=== PATIENT | male | born 1955 | race Hispanic/Latino ===

== ENCOUNTER 2017-05-12 18:45 | Emergency (ER) | payer BC ==
[2017-05-12 19:28] LABS: Basophils % (Auto) 0.8 % (0.0-1.8); Eosinophils % (Auto) 0.7 % (0.0-4.3); Hematocrit 35.6 % (35.5-45.6); Hemoglobin 11.9 gm/dl (11.8-15.2); Mean Corpuscular HGB Conc 33 % (32-34); Mean Corpuscular Hemoglobin 30 pg (28-32); Mean Corpuscular Volume 89 fl (84-94); Platelet Count 135 K/mm3 (140-440); Red Blood Count 4.02 M/mm3 (3.65-5.03); Red Cell Distribution Width 14.8 % (13.2-15.2); White Blood Count 7.3 K/mm3 (4.5-11.0)
[2017-05-12 19:48] LABS: INR 4.67 (0.87-1.13)
[2017-05-12 19:49] LABS: Partial Thromboplastin Time 54.4 Sec. (24.2-36.6)
[2017-05-12 19:54] LABS: Anion Gap 19 mmol/L; BUN/Creatinine Ratio 5.71; Blood Urea Nitrogen 8 mg/dL (9-20); Carbon Dioxide 26 mmol/L (22-30); Chloride 98.3 mmol/L (98-107); Glucose 94 mg/dL (75-100); Potassium 4.7 mmol/L (3.6-5.0); Sodium 139 mmol/L (137-145)
[2017-05-12 22:41] VITALS: BP 124/56
[2017-05-12] MEDS ORDERED: LASIX IV ONE (23:30)
[2017-05-12] MEDS ORDERED: ZOFRAN IV ONE (23:30)
[2017-05-12] MEDS ORDERED: MORPHINE IV ONE (23:30)
--- NOTE | 2017-05-12 23:45 | Emergency Department Report ---
HPI - General Chief Complaint: Extremity Injury, Lower Time Seen by Provider: 05/12/17 22:54 - HPI HPI: Room 3 The patient is a 61-year-old male presenting with a chief complaint of bilateral lower extremity edema and left leg pain. Patient states yesterday he developed swelling in both lower extremities. The patient states yesterday after normal interval mild aching pain behind his left calf. Patient states the pain is worsened the point where is unable to bear weight. Patient denies chest pain, shortness of breath or fever. Patient denies trauma to any type. Patient does have a history of CHF and states that he is not on a diuretic. Patient gets his pain a score of 10/10 Location: Bilateral lower extremities Duration: Constant since yesterday Quality: Pain Severity: 10/10 Modifying factors: [see above] Context: [see above] Mode of transportation: [not driving] ED Past Medical Hx - Past Medical History Previous Medical History?: Yes Hx Hypertension: Yes Hx Heart Attack/AMI: Yes Hx Congestive Heart Failure: Yes Hx Diabetes: Yes Hx Pulmonary Embolism: Yes (2008 on Coumadin) Hx Arthritis: Yes (rheumatoid arthritis) Additional medical history: Psoriasis - Surgical History Past Surgical History?: Yes Hx Open Heart Surgery: Yes (CABG 2004) - Family History Family history: no significant - Social History Smoking Status: Current Every Day Smoker (1/2 pack per day) Substance Use Type: None - Medications Home Medications: Home Medications Medication Instructions Recorded Confirmed Last Taken Type AtorvaSTATin [Lipitor] 40 mg PO QHS 05/12/17 05/12/17 05/11/17 History Carvedilol [Coreg] 12.5 mg PO BID 05/12/17 05/12/17 05/12/17 History Clopidogrel Bisulfate [Plavix] 75 mg PO DAILY 05/12/17 05/12/17 05/12/17 History Cyanocobalamin (Vitamin B-12) 1,000 mcg PO DAILY 05/12/17 05/12/17 05/12/17 History [Vitamin B12] Escitalopram [Lexapro] 10 mg PO DAILY 05/12/17 05/12/17 05/12/17 History Folic Acid [Folvite] 1 mg PO QDAY 05/12/17 05/12/17 05/12/17 History Levothyroxine [Synthroid] 100 mcg PO QAM 06/05/12/17 05/12/17 History Lisinopril [Zestril] 20 mg PO QDAY 05/12/17 05/12/17 05/12/17 History Omeprazole 40 mg PO DAILY 05/12/17 05/12/17 05/12/17 History Potassium Chloride [K-Dur] 20 meq PO BID 05/12/17 05/12/17 05/12/17 History Warfarin [Coumadin] 7.5 mg PO QDAY 05/12/17 05/12/17 05/12/17 History metFORMIN [Glucophage] 500 mg PO BID 05/12/17 05/12/17 05/12/17 History Furosemide [Lasix] 20 mg PO QDAY #7 tablet 05/13/17 Unknown Rx HYDROcodone/APAP 5-325 [[place] 1 - 2 each PO Q6HR PRN #14 tablet 05/13/17 Unknown Rx 5/325] ED Review of Systems ROS: Stated complaint: SWOLLEN LEGS/PAIN Other details as noted in HPI Comment: All other systems reviewed and negative Constitutional: denies: chills, fever Eyes: denies: eye pain, eye discharge, vision change ENT: denies: ear pain, throat pain Respiratory: denies: cough, shortness of breath, wheezing Cardiovascular: denies: chest pain, palpitations Endocrine: no symptoms reported Gastrointestinal: denies: abdominal pain, nausea, diarrhea Genitourinary: denies: urgency, dysuria Musculoskeletal: myalgia. denies: back pain, joint swelling, arthralgia Skin: denies: rash, lesions Neurological: denies: headache, weakness, paresthesias Psychiatric: denies: anxiety, depression Hematological/Lymphatic: denies: easy bleeding, easy bruising Physical Exam - Physical Exam Vital Signs: Vital Signs 05/12/17 05/12/17 05/12/17 18:54 21:53 22:00 Temperature 98.5 F Pulse Rate 83 74 Respiratory 18 15 22 Rate Blood Pressure 133/70 124/56 O2 Sat by Pulse 97 99 100 Oximetry 05/12/17 05/12/17 05/12/17 22:10 22:20 22:30 Temperature Pulse Rate 71 79 73 Respiratory 10 L 20 22 Rate Blood Pressure 124/56 124/56 124/56 O2 Sat by Pulse 100 97 100 Oximetry Physical Exam: GENERAL: The patient is well-developed well-nourished male lying on stretcher not appearing to be in acute distress. [] HEENT: Normocephalic. Atraumatic. Extraocular motions are intact. Patient has moist mucous membranes. NECK: Supple. Trachea midline CHEST/LUNGS: Clear to auscultation. There is no respiratory distress noted. HEART/CARDIOVASCULAR: Regular. There is no tachycardia. There is no gallop rub or murmur. Dopplerable DP left foot ABDOMEN: Abdomen is soft, nontender. Patient has normal bowel sounds. There is no abdominal distention. SKIN: Large psoriatic lesion to the anterolateral right lower extremity, this is chronic). There is 2+ bilateral lower extremity pitting edema. There is no diaphoresis. NEURO: The patient is awake, alert, and oriented. The patient is cooperative. The patient has normal speech MUSCULOSKELETAL: There is tenderness to palpation of the left calf. ED Course Vital Signs 05/12/17 05/12/17 05/12/17 18:54 21:53 22:00 Temperature 98.5 F Pulse Rate 83 74 Respiratory 18 15 22 Rate Blood Pressure 133/70 124/56 O2 Sat by Pulse 97 99 100 Oximetry 05/12/17 05/12/17 05/12/17 22:10 22:20 22:30 Temperature Pulse Rate 71 79 73 Respiratory 10 L 20 22 Rate Blood Pressure 124/56 124/56 124/56 O2 Sat by Pulse 100 97 100 Oximetry - Reevaluation(s) Reevaluation #1: 05/13/17 00:37 Patient improved. States pain is decreased to 3/10 ED Medical Decision Making - Lab Data Result diagrams: 05/12/17 19:03 05/12/17 19:03 Laboratory Tests 05/12/17 05/12/17 05/12/17 19:03 19:03 19:03 WBC 7.3 RBC 4.02 Hgb 11.9 Hct 35.6 MCV 89 MCH 30 MCHC 33 RDW 14.8 Plt Count 135 L Lymph % (Auto) 17.4 [place] % (Auto) 9.1 H Eos % (Auto) 0.7 Baso % (Auto) 0.8 Lymph # 1.3 [place] # 0.7 Eos # 0.0 Baso # 0.1 Seg Neutrophils % 72.0 H Seg Neutrophils # 5.3 PT 44.5 H INR 4.67 H APTT 54.4 H Sodium 139 Potassium 4.7 Chloride 98.3 Carbon Dioxide 26 Anion Gap 19 BUN 8 L Creatinine 1.4 Estimated GFR 52 BUN/Creatinine Ratio 5.71 Glucose 94 Calcium 8.0 L Total Bilirubin Direct Bilirubin Indirect Bilirubin AST ALT Alkaline Phosphatase Troponin T < 0.010 NT-Pro-B Natriuret Pep Total Protein Albumin Albumin/Globulin Ratio 05/12/17 05/12/17 05/12/17 19:03 19:09 22:09 WBC RBC Hgb Hct MCV MCH MCHC RDW Plt Count Lymph % (Auto) [place] % (Auto) Eos % (Auto) Baso % (Auto) Lymph # [place] # Eos # Baso # Seg Neutrophils % Seg Neutrophils # PT INR APTT Sodium Potassium Chloride Carbon Dioxide Anion Gap BUN Creatinine Estimated GFR BUN/Creatinine Ratio Glucose Calcium Total Bilirubin 0.90 Direct Bilirubin 0.4 H Indirect Bilirubin 0.5 AST 30 ALT 16 Alkaline Phosphatase 74 Troponin T < 0.010 NT-Pro-B Natriuret Pep 824.1 Total Protein 7.1 Albumin 3.4 L Albumin/Globulin Ratio 0.9 - EKG Data -: EKG Interpreted by Me EKG shows normal: sinus rhythm Rate: normal - EKG Data When compared to previous EKG there are: previous EKG unavailable Interpretation: other (no ischemic changes seen) - Radiology Data Radiology results: image reviewed (left tib-fib x-ray) interpreted by me: Left tib-fib x-ray-no acute fracture - Differential Diagnosis CHF, peripheral edema, DVT, muscle spasm, occult fracture Critical care attestation.: If time is entered above; I have spent that time in minutes in the direct care of this critically ill patient, excluding procedure time. ED Disposition Clinical Impression: Pain of left calf, Bilateral lower extremity edema Disposition: - TO HOME OR SELFCARE Is pt being admited?: No Does the pt Need Aspirin: No Condition: Stable Instructions: Deep Venous Thrombosis (ED), Leg Edema (ED) Additional Instructions: You should not take no Coumadin for the next 2 days (your INR today was 4.67). You should return to the hospital this morning to have an ultrasound performed of the left lower extremity to evaluate for DVTs (blood clots). Return to the emergency department immediately should you develop worsening symptoms, fever, inability to tolerate food or liquid or any other concerns. Prescriptions: Furosemide [Lasix] 20 mg PO QDAY #7 tablet HYDROcodone/APAP 5-325 [[place] 5/325] 1 - 2 each PO Q6HR PRN #14 tablet PRN Reason: Pain Referrals: PRIMARY CARE,MD [Primary Care Provider] - 3-5 Days Time of Disposition: 00:28
[2017-05-12 23:46] LABS: Albumin 3.4 g/dL (3.9-5); Albumin/Globulin Ratio 0.9 %; Bilirubin,Direct 0.4 mg/dL (0-0.2); Bilirubin,Indirect 0.5 mg/dL; Bilirubin,Total 0.9 mg/dL (0.1-1.2); Total Protein 7.1 g/dL (6.3-8.2)
[2017-05-13] MEDS ORDERED: CITRACAL D 315MG-250 UNITS PO ONE (00:23)
--- NOTE | 2017-05-13 08:17 | XRay Report ---
LEFT TIBIA AND FIBULA TWO VIEWS: 05/12/17 18:45:00 CLINICAL: Pain. No trauma. FINDINGS: No fracture or dislocation. Mild narrowing of the medial joint space. The patella is segmented on the lateral view suggesting an old fracture. Vascular calcifications. Surgical clips in the distal soft tissues. No soft tissue air or foreign body. IMPRESSION: Peripheral vascular disease and mild osteoarthritis of the knee.
== END 2017-05-13 01:44 | disposition home or self-care (01) ==
LOC: ED 18:45
DX: M79.662 Pain in left lower leg (principal); R60.0 Localized edema; I10 Essential (primary) hypertension; I25.2 Old myocardial infarction; I50.9 Heart failure, unspecified; E11.9 Type 2 diabetes mellitus without complications; M06.9 Rheumatoid arthritis, unspecified; I26.99 Other pulmonary embolism without acute cor pulmonale; F17.200 Nicotine dependence, unspecified, uncomplicated; Z79.01 Long term (current) use of anticoagulants
CPT/HCPCS: 36415; 73590; 80048; 80074; 83880; 84484; 85025; 85610; 85730; 93005; 93010; 96374; 96375; 99285; J1940; J2270; J2405

== ENCOUNTER 2017-05-13 10:25 | Outpatient (CLI) | payer BC ==
--- NOTE | 2017-05-13 15:16 | Vascular Lab Report ---
LOWER EXTREMITY VENOUS DUPLEX: REASON FOR EXAM: Pain and swelling of the lower extremities. COMMENTS ON THE RIGHT: All veins visualized are freely compressible without evidence of internal echogenicity. Flow is spontaneous and phasic throughout. COMMENTS ON THE LEFT: All veins visualized are freely compressible without evidence of internal echogenicity. Flow is spontaneous and phasic throughout. Soft tissue changes in the left leg appears to be a complex cyst or a mass. Clinical correlation is recommended. Followup CT or MRI should be considered IMPRESSION: No evidence of acute or chronic deep venous thrombosis in either lower extremity. Possible complex cyst or a mass in the left leg.
== END 2017-05-13 10:26 | disposition home or self-care (01) ==
LOC: VAS 10:25
PROVIDERS: ATTEND Emergency Medicine Emergency Medical Services
DX: M79.89 Other specified soft tissue disorders (principal); M79.605 Pain in left leg; J45.909 Unspecified asthma, uncomplicated; I11.0 Hypertensive heart disease with heart failure; I50.9 Heart failure, unspecified